=== PATIENT | male | born 1985 | race Caucasian/White ===

== ENCOUNTER 2018-10-08 20:09 | Emergency (ER) | payer MEDICAID, OTHER ==
[~2018-10-08] VITALS: Wt 95.8 kg
[2018-10-08 20:12] VITALS: BP 159/94; PULSE 72; RESP 18
[2018-10-08] MEDS ORDERED: PENICILLIN G BENZ 2.4 MIL UNIT SYG IM ONE (21:30)
--- NOTE | 2018-10-08 22:17 | ERD ---
ER Documentation Chief Complaint Chief Complaint GENITAL PAIN, DYSURIA X'S 1 WEEK ROS All systems reviewed and are negative except as per history of present illness. Allergies Allergies: Coded Allergies: No Known Allergy (Unverified , 10/08/18) PMhx/Soc Medical and Surgical Hx: pt denies Medical Hx, pt denies Surgical Hx History of Surgery: No Anesthesia Reaction: No Hx Neurological Disorder: No Hx Respiratory Disorders: No Hx Cardiac Disorders: No Hx Psychiatric Problems: No Hx Miscellaneous Medical Probl: No Hx Alcohol Use: No Hx Substance Use: No Hx Tobacco Use: No Smoking Status: Never smoker Physical Exam Vitals Vital Signs Date Temp Pulse Resp B/P (MAP) Pulse Ox O2 O2 Flow FiO2 Time Delivery Rate 10/08/18 98.8 72 18 159/94 100 20:12 (115) Physical Exam Const: No acute distress Head: Atraumatic Eyes: Normal Conjunctiva ENT: Normal External Ears, Nose and Mouth. Neck: Full range of motion. No meningismus. Resp: Clear to auscultation bilaterally Cardio: Regular rate and rhythm, no murmurs Abd: Soft, non tender, non distended. Normal bowel sounds Skin: No petechiae or rashes Back: No midline or flank tenderness Ext: No cyanosis, or edema Neur: Awake and alert Psych: Normal Mood and Affect Results 24 hrs Laboratory Tests Test 10/08/18 21:22 Bedside Urine pH (LAB) 7.0 Bedside Urine Protein (LAB) Negative Bedside Urine Glucose (UA) Negative Bedside Urine Ketones (LAB) Negative Bedside Urine Blood Negative Bedside Urine Nitrite (LAB) Negative Bedside Urine Leukocyte Esterase (L 1+ Current Medications Medications Dose Sig/Jonh Start Time Status Last (Trade) Ordered Route PRN Stop Time Admin Dose Reason Admin Penicillin 2,400,000 ONCE ONCE 10/08/18 DC 10/08/18 G units IM 21:30 10/08/18 21:32 Benzathine 21:31 (Bicillin La) Departure Diagnosis: Primary Impression: Disorder of male genital organs Condition: Fair Patient Instructions: Syphilis, Herpes Genitalis, Hsv: Type Ii Referrals: [facility] YOU HAVE RECEIVED A MEDICAL SCREENING EXAM AND THE RESULTS INDICATE THAT YOU DO NOT HAVE A CONDITION THAT REQUIRES URGENT TREATMENT IN THE EMERGENCY DEPARTMENT. FURTHER EVALUATION AND TREATMENT OF YOUR CONDITION CAN WAIT UNTIL YOU ARE SEEN IN YOUR DOCTORS OFFICE WITHIN THE NEXT 1-2 DAYS. IT IS YOUR RESPONSIBILITY TO MAKE AN APPOINTMENT FOR FOLOW-UP CARE. IF YOU HAVE A PRIMARY DOCTOR --you should call your primary doctor and schedule an appointment IF YOU DO NOT HAVE A PRIMARY DOCTOR YOU CAN CALL OUR PHYSICIAN REFERRAL HOTLINE AT IF YOU CAN NOT AFFORD TO SEE A PHYSICIAN YOU CAN CHOSE FROM THE FOLLOWING [facility] [address] [facility] [address] [facility] [address] [facility] [address] [facility] [address] [facility]. [facility] [address] Additional Instructions: Llame al doctor MAANA y april nuzhat JAMES PARA DENTRO DE 1-2 WILLS.Dgale a la secretaria que nosotros le instruimos hacer esta james.Avise o llame si dawson condicin se empeora antes de la james. Regresa aqui si peor o no mejor. Given PCN x1 dose in ER for syphilis RPR and HSV test results pending follow up with PCP or call for results FABRICE ALDANA DO Oct 08, 2018 22:17
== END 2018-10-08 22:33 | disposition home or self-care (01) ==
LOC: FTE 20:09
DX: N50.9 Disorder of male genital organs, unspecified (principal)
CPT/HCPCS: 81003; 86592; 86692; 96372; J0561; Z7502